=== PATIENT | female | born 1995 | race Caucasian/White ===

== ENCOUNTER 2017-01-21 17:57 | Emergency (ER) | payer OTHER ==
[2017-01-21 18:16] VITALS: BP 125/62; PULSE 103; TEMP 98; BMI 27.4
[2017-01-21 18:39] LABS: BASOPHIL 0.6 % (0-2.0); EOSINOPHIL 0.4 % (0-4.5); MCH 28.1 pg (25.7-33.7); MCHC 33.3 g/dl (32.0-36.0); MEAN CELL VOLUME 84.5 fl (80-96); MEAN PLT VOLUME 7.4 fl (7.5-11.1); PLATELET COUNT 180 K/MM3 (134-434); RDW 14.5 % (11.6-15.6)
[2017-01-21 18:40] LABS: URINE APPEARANCE CLEAR; URINE BILIRUBIN NEGATIVE (NEGATIVE); URINE BLOOD NEGATIVE (NEGATIVE); URINE COLOR YELLOW; URINE GLUCOSE (UA) NEGATIVE (NEGATIVE); URINE KETONE TRACE (NEGATIVE); URINE NITRITE NEGATIVE (NEGATIVE); URINE PROTEIN NEGATIVE (NEGATIVE); URINE UROBILINOGEN NEGATIVE E.U./dl (0.2-1.0)
[2017-01-21 18:42] LABS: URINE LEUK ESTERASE 2+ (NEGATIVE)
[2017-01-21 18:43] LABS: URINE HYALINE CAST 2 /lpf; URINE MUCUS MANY; URINE RBC 1 /hpf (0-3); URINE WBC 12 /hpf (3-5)
[2017-01-21] MEDS ORDERED: SODIUM CHLORIDE 1,000 ML IV STA (18:55)
[2017-01-21 19:04] LABS: ALBUMIN 3.9 g/dl (3.4-5.0); ALK PHOS 70 U/L (45-117); ANION GAP 9 (8-16); BILIRUBIN,TOTAL 0.8 mg/dL (0.2-1.0); CALCIUM 8.7 mg/dL (8.5-10.1); CO2 24 mmol/L (21-32); CREATININE 0.9 mg/dL (0.55-1.02); GLUCOSE,RANDOM 100 mg/dL (74-106); SGOT/AST 17 U/L (15-37); SGPT/ALT 18 U/L (12-78); TOT PROT 7.7 g/dl (6.4-8.2)
[2017-01-21] MEDS ORDERED: KETOROLAC TROMETHAMINE 30 MG/1 ML VIAL IVPUSH ONE (19:05)
--- NOTE | 2017-01-21 19:16 | PDOC ---
History of Present Illness - General History Source: Patient Exam Limitations: No Limitations <Rob Garcia - Last Filed: 01/21/17 20:14> - General History Source: Patient Exam Limitations: No Limitations - History of Present Illness Initial Comments: 01/21/17 20:27 The patient is a 22 year old female, with no significant past medical history, who presents to the emergency department with URI symptoms for the past 2 days. The patient reports that she was in her usual state of health 2 days ago. Yesterday, she woke up and reports feeling generally weak as if she was coming down with a cold. She reports one episode of nonbloody nonbilious vomiting this morning. The patient reports that she was at work earlier today when she felt weak, dizzy and lightheaded, she reports feeling like she was going to pass out but never did, denies any syncope. She presents to the ED for further evaluation. The patient additionally reports a UTI, for which she is currently on antibiotics for. The patient denies fever, chills, chest pain or shortness of breath. Allergies: None reported. Past Surgical History: None reported. Social History: Current smoker. Reports social alcohol use. <Trista Durand - Last Filed: 01/21/17 20:30> - General Chief Complaint: Lightheaded Stated Complaint: DIZZINESS Time Seen by Provider: 01/21/17 18:43 Past History - Psycho/Social/Smoking Cessation Hx Suicidal Ideation: No Smoking History: Current some day smoker Have you smoked in the past 12 months: Yes Information on smoking cessation initiated: No <Rob Garcia - Last Filed: 01/21/17 20:14> <Trista Durand - Last Filed: 01/21/17 20:30> - Past Medical History Allergies/Adverse Reactions: Allergies Allergy/AdvReac Type Severity Reaction Status Date / Time No Known Allergies Allergy Verified 01/21/17 18:13 Home Medications: Ambulatory Orders Cephalexin [Keflex] 500 mg PO BID #13 capsule 01/21/17 Review of Systems - Review of Systems Able to Perform ROS?: Yes Comments:: 01/21/17 20:19 GENERAL/CONSTITUTIONAL: +Weakness. No fever or chills. HEAD, EYES, EARS, NOSE AND THROAT: No change in vision. No ear pain or discharge. No sore throat. CARDIOVASCULAR: +Lightheadedness. No chest pain or shortness of breath. RESPIRATORY: +URI symptoms. No wheezing or hemoptysis. GASTROINTESTINAL: +Nausea, vomiting. No diarrhea or constipation. GENITOURINARY: No dysuria, frequency, or change in urination. MUSCULOSKELETAL: No joint or muscle swelling or pain. No neck or back pain. SKIN: No rash. NEUROLOGIC: +Dizziness. No headache, vertigo, loss of consciousness, or change in strength/sensation. ENDOCRINE: No increased thirst. No abnormal weight change. HEMATOLOGIC/LYMPHATIC: No anemia, easy bleeding, or history of blood clots. ALLERGIC/IMMUNOLOGIC: No hives or skin allergy. <Trista Durand - Last Filed: 01/21/17 20:30> *Physical Exam - Vital Signs Last Vital Signs Temp Pulse Resp BP Pulse Ox 98 F 103 H 19 125/62 99 01/21/17 18:13 01/21/17 18:13 01/21/17 18:13 01/21/17 18:13 01/21/17 18:13 <Rob Garcia - Last Filed: 01/21/17 20:14> - Vital Signs Last Vital Signs Temp Pulse Resp BP Pulse Ox 98 F 103 H 19 125/62 99 01/21/17 18:13 01/21/17 18:13 01/21/17 18:13 01/21/17 18:13 01/21/17 18:13 - Physical Exam Comments: 01/21/17 19:19 GENERAL: Awake, alert, and fully oriented, in no acute distress. HEAD: No signs of trauma. EYES: PERRLA, EOMI, sclera anicteric, conjunctiva clear. ENT: Auricles normal inspection, hearing grossly normal, nares patent, oropharynx clear without exudates. Moist mucosa. NECK: Normal ROM, supple, no lymphadenopathy, JVD, or masses. LUNGS: Breath sounds equal, clear to auscultation bilaterally. No wheezes, and no crackles. HEART: Regular rate and rhythm, normal S1 and S2, no murmurs, rubs or gallops. ABDOMEN: Soft, nontender, normoactive bowel sounds. No guarding, no rebound. No masses. EXTREMITIES: Normal range of motion, no edema. No clubbing or cyanosis. No cords , erythema, or tenderness. NEUROLOGICAL: Cranial nerves II through XII intact. Normal speech, normal gait. SKIN: Warm, dry, normal turgor, no rashes or lesions noted. <Trista Durand - Last Filed: 01/21/17 20:30> Heart Score/ECG Review #1 ECG reviewed & interpreted by me at: 20:05 01/21/17 20:11 NSR 85, no std/trae, T wave flat III, no brugada, no HOCM, no WPW, normal axis, normal intervals, QTC 430 msec <Rob Garcia - Last Filed: 01/21/17 20:14> ED Treatment Course - LABORATORY CBC & Chemistry Diagram: 01/21/17 18:30 01/21/17 18:30 - ADDITIONAL ORDERS Additional order review: Laboratory Results 01/21/17 01/21/17 18:30 18:30 Sodium 143 Potassium 3.6 Chloride 110 H Carbon Dioxide 24 Anion Gap 9 BUN 14 Creatinine 0.9 Creat Clearance w eGFR > 60 Random Glucose 100 Calcium 8.7 Total Bilirubin 0.8 AST 17 ALT 18 Alkaline Phosphatase 70 Total Protein 7.7 Albumin 3.9 Urine Color Yellow Urine Appearance Clear Urine pH 5.0 Ur Specific Cutler 1.038 H Urine Protein Negative Urine Glucose (UA) Negative Urine Ketones Trace H Urine Blood Negative Urine Nitrite Negative Urine Bilirubin Negative Urine Urobilinogen Negative Ur Leukocyte Esterase 2+ H Urine RBC 1 Urine WBC 12 Ur Epithelial Cells Few Hyaline Casts 2 Urine Mucus Many Urine HCG, Qual Negative 01/21/17 18:30 RBC 4.64 MCV 84.5 MCHC 33.3 RDW 14.5 MPV 7.4 L Neutrophils % 59.0 Lymphocytes % 28.3 Monocytes % 11.7 H Eosinophils % 0.4 Basophils % 0.6 <Rob Garcia - Last Filed: 01/21/17 20:14> - LABORATORY CBC & Chemistry Diagram: 01/21/17 18:30 01/21/17 18:30 - ADDITIONAL ORDERS Additional order review: Laboratory Results 01/21/17 01/21/17 18:30 18:30 Sodium 143 Potassium 3.6 Chloride 110 H Carbon Dioxide 24 Anion Gap 9 BUN 14 Creatinine 0.9 Creat Clearance w eGFR > 60 Random Glucose 100 Calcium 8.7 Total Bilirubin 0.8 AST 17 ALT 18 Alkaline Phosphatase 70 Total Protein 7.7 Albumin 3.9 Urine Color Yellow Urine Appearance Clear Urine pH 5.0 Ur Specific Cutler 1.038 H Urine Protein Negative Urine Glucose (UA) Negative Urine Ketones Trace H Urine Blood Negative Urine Nitrite Negative Urine Bilirubin Negative Urine Urobilinogen Negative Ur Leukocyte Esterase 2+ H Urine RBC 1 Urine WBC 12 Ur Epithelial Cells Few Hyaline Casts 2 Urine Mucus Many Urine HCG, Qual Negative 01/21/17 18:30 RBC 4.64 MCV 84.5 MCHC 33.3 RDW 14.5 MPV 7.4 L Neutrophils % 59.0 Lymphocytes % 28.3 Monocytes % 11.7 H Eosinophils % 0.4 Basophils % 0.6 <RocklandTrista Jauregui - Last Filed: 01/21/17 20:30> Medical Decision Making - Medical Decision Making 01/21/17 19:13 A portion of this note was documented by scribe services under my direction. I have reviewed the details of the note, within reason, and agree with the documentation with the following case summary and management plan written by me. Patient treated in the ED. Nursing notes are reviewed and incorporated into the medical decision-making. Vital signs reviewed. Peripheral IV access obtained by the nurse, laboratory studies are drawn and sent, reviewed and interpreted by myself. Vital Signs Temp Pulse Resp BP Pulse Ox 98 F 103 H 19 125/62 99 01/21/17 18:13 01/21/17 18:13 01/21/17 18:13 01/21/17 18:13 01/21/17 18:13 22-year-old female with no past medical history presents with cold-like symptoms. Patient reports 2 days of upper respiratory-like symptoms and general malaise. She is also having current currently being treated for urinary tract infection which she's taken outpatient antibiotic. She is currently on her second dose. She stated at work, she felt lightheaded and dizzy and she felt like fainting but did not think. Denies chest pain or short of breath. Came to the ED for further evaluation. I suspect the patient has vasovagal near syncope and lightheadedness with an upper respiratory infection likely viral plus urinary tract infection. We'll give IV fluids and Toradol. Draw labs and reassess. If negative workup, we'll discharge the PMD follow-up. 01/21/17 20:11 CBC, BMP 01/21/17 18:30 01/21/17 18:30 CMP Sodium 143 mmol/L (136-145) 01/21/17 18:30 Potassium 3.6 mmol/L (3.5-5.1) 01/21/17 18:30 Chloride 110 mmol/L (98-107) H 01/21/17 18:30 Carbon Dioxide 24 mmol/L (21-32) 01/21/17 18:30 Anion Gap 9 (8-16) 01/21/17 18:30 BUN 14 mg/dL (7-18) 01/21/17 18:30 Creatinine 0.9 mg/dL (0.55-1.02) 01/21/17 18:30 Creat Clearance w eGFR > 60 (>60) 01/21/17 18:30 Random Glucose 100 mg/dL (74-106) 01/21/17 18:30 Calcium 8.7 mg/dL (8.5-10.1) 01/21/17 18:30 Total Bilirubin 0.8 mg/dL (0.2-1.0) 01/21/17 18:30 AST 17 U/L (15-37) 01/21/17 18:30 ALT 18 U/L (12-78) 01/21/17 18:30 Alkaline Phosphatase 70 U/L (45-117) 01/21/17 18:30 Total Protein 7.7 g/dl (6.4-8.2) 01/21/17 18:30 Albumin 3.9 g/dl (3.4-5.0) 01/21/17 18:30 Urine Test Results Urine Color Yellow 01/21/17 18:30 Urine Appearance Clear 01/21/17 18:30 Urine pH 5.0 (5.0-8.0) 01/21/17 18:30 Ur Specific Cutler 1.038 (1.001-1.035) H 01/21/17 18:30 Urine Protein Negative (NEGATIVE) 01/21/17 18:30 Urine Glucose (UA) Negative (NEGATIVE) 01/21/17 18:30 Urine Ketones Trace (NEGATIVE) H 01/21/17 18:30 Urine Blood Negative (NEGATIVE) 01/21/17 18:30 Urine Nitrite Negative (NEGATIVE) 01/21/17 18:30 Urine Bilirubin Negative (NEGATIVE) 01/21/17 18:30 Ur Leukocyte Esterase 2+ (NEGATIVE) H 01/21/17 18:30 Urine RBC 1 /hpf (0-3) 01/21/17 18:30 Urine WBC 12 /hpf (3-5) 01/21/17 18:30 Ur Epithelial Cells Few /hpf (FEW) 01/21/17 18:30 Urine Mucus Many 01/21/17 18:30 Patient reports feeling better. After talking with the patient, it sounds like she received (two pills) for both her and her boyfriend (?azithromycin for chlamydia?). She does not have any more prescriptions for a UTI. Will write a prescription for 1 week worth of keflex. Follow up with PMD. Encouraged hydration. I discussed the physical exam findings, ancillary test results and final diagnoses with the patient. I answered all of the patient's questions. The patient was satisfied with the care received and felt comfortable with the discharge plan and treatment plan. The patient will call their primary care physician within 24 hours to arrange follow-up and will return to the Emergency Department with any new, persistant or worsening symptoms. <Rob Garcia - Last Filed: 01/21/17 20:14> *DC/Admit/Observation/Transfer - Discharge Dispostion Admit: No <Rob Garcia - Last Filed: 01/21/17 20:14> - Attestations Scribe Attestion: 01/21/17 19:19 Documentation prepared by Trista Durand, acting as chief medical physicist for Rob Garcia MD. <Trista Durand - Last Filed: 01/21/17 20:30> Diagnosis at time of Disposition: Dehydration, URI, acute UTI (urinary tract infection) Qualifiers: Urinary tract infection type: site unspecified Hematuria presence: without hematuria Qualified Code(s): N39.0 - Urinary tract infection, site not specified - Discharge Dispostion Disposition: HOME Condition at time of disposition: Improved - Prescriptions Prescriptions: Cephalexin [Keflex] 500 mg PO BID #13 capsule - Referrals Referrals: STAFF,NOT ON [Primary Care Provider] - - Patient Instructions Printed Discharge Instructions: DI for Urinary Tract Infection (UTI), DI for Viral Syndrome, DI for Dehydration -- Adult Additional Instructions: Please take the keflex every 12 hours for the next week for your urine infection. Drink plenty of fluids and rest. Follow up with your doctor. - Post Discharge Activity Work/School Note: Back to Work
[2017-01-21] MEDS ORDERED: KETOROLAC TROMETHAMINE 30 MG/1 ML VIAL ONE (19:23)
[2017-01-21] MEDS ORDERED: CEPHALEXIN MONOHYDRATE 500 MG CAPSULE (UD) PO ONE (20:14)
[2017-01-21] MEDS ORDERED: CEPHALEXIN MONOHYDRATE 250 MG CAPSULE (FP) ONE (20:25)
--- NOTE | 2017-01-22 16:38 | EKG ---
Test Reason : Blood Pressure : / mmHG Vent. Rate : 085 BPM Atrial Rate : 085 BPM P-R Int : 150 ms QRS Dur : 086 ms QT Int : 362 ms P-R-T Axes : 041 051 035 degrees QTc Int : 430 ms NORMAL SINUS RHYTHM NORMAL ECG NO PREVIOUS ECGS AVAILABLE Confirmed by MD ISHA, KIRK ([id number]) on 01/22/2017 4:37:48 PM Referred By: Confirmed By:KIRK VIEIRA MD
== END 2017-01-21 20:24 | disposition home or self-care (01) ==
LOC: JER 17:57
PROC: 3E0333Z Introduction of Anti-inflammatory into Peripheral Vein, Percutaneous Approach (ICD-10-PCS; principal; 2017-01-21)
DX: J06.9 Acute upper respiratory infection, unspecified (principal); N39.0 Urinary tract infection, site not specified; E87.6 Hypokalemia
CPT/HCPCS: 36415; 80053; 81003; 81015; 84703; 85025; 93005; 93010; 99282-25

== ENCOUNTER 2017-08-31 18:56 | Emergency (ER) | payer OTHER ==
[2017-08-31 19:01] VITALS: BP 122/70; PULSE 76; TEMP 98.6; BMI 26.3
[2017-08-31] MEDS ORDERED: AZITHROMYCIN 500 MG TABLET PO ONE (20:41)
[2017-08-31 20:42] LABS: URINE APPEARANCE CLOUDY; URINE BILIRUBIN NEGATIVE (NEGATIVE); URINE BLOOD 1+ (NEGATIVE); URINE COLOR YELLOW; URINE GLUCOSE (UA) NEGATIVE (NEGATIVE); URINE KETONE NEGATIVE (NEGATIVE); URINE NITRITE NEGATIVE (NEGATIVE); URINE PROTEIN NEGATIVE (NEGATIVE); URINE UROBILINOGEN NEGATIVE mg/dL (0.2-1.0)
[2017-08-31] MEDS ORDERED: FLUCONAZOLE 50 MG TABLET PO ONE (20:51)
--- NOTE | 2017-08-31 20:51 | PDOC ---
History of Present Illness - General Chief Complaint: Urinary Problem Stated Complaint: STD TEST Time Seen by Provider: 08/31/17 19:55 - History of Present Illness Initial Comments: 08/31/17 20:42 CHIEF COMPLAINT: std testing HISTORY OF PRESENT ILLNESS: 22 yo F with no significant PMH presents to [facility] for STD testing. Patient states she has had white discharge "for a week" but denies any dysuria, urinary frequency, or burning. PAtient reports "it feels kind of irritated and sometimes it's itchy." Patient reports being sexually active with one partner and states she recently had unprotected sex. PAST MEDICAL HISTORY: Denies past medical history FAMILY HISTORY: Denies SOCIAL HISTORY: Denies tobacco, alcohol, illicit drug use. SURGICAL HISTORY: Denies ALLERGIES: No known drug allergies REVIEW OF SYSTEMS General/Constitutional: Denies fever or chills. Denies weakness, weight change. HEENT: Denies change in vision. Denies ear pain or discharge. Denies sore throat. Cardiovascular: Denies chest pain or shortness of breath. Respiratory: Denies cough, wheezing, or hemoptysis. Gastrointestinal: Denies nausea, vomiting, diarrhea or constipation. Denies rectal bleeding. Genitourinary: "I've had white discharge for a week." Denies dysuria, frequency , or change in urination. Musculoskeletal: Denies joint or muscle swelling or pain. Denies neck or back pain. Skin and breasts: Denies rash or easy bruising. PHYSICAL EXAM General Appearance: Well-appearing, appropriately dressed. No apparent distress. HEENT: EOMI, PERRLA, normal ENT inspection, normal voice, TMs normal, pharynx normal. No conjunctival pallor. No photophobia, scleral icterus. Neck: Supple. Trachea midline. No tenderness, rigidity, carotid bruit, stridor , lymphadenopathy, or thyromegaly. Respiratory/Chest: Lungs CTAB. Cardiovascular: RRR. S1, S2. Gastrointestinal/Abdominal: Normal bowel sounds. Abdomen soft, non-distended. No tenderness or rebound tenderness. No organomegaly, pulsatile mass, guarding , hernia, hepatomegaly, splenomegaly. Pelvic Exam: Vaginal vault with thin white/green discharge with minimal clumping. Musculoskeletal/Extremities: Normal inspection. FROM of all extremities, normal capillary refill. No tenderness to extremities, pedal edema, swelling, erythema or deformity. Integumentary: Appropriate color, dry, warm. No cyanosis, erythema, jaundice or rash Neurologic: web sizer II-XII intact. Fully oriented, alert. Appropriate mood/affect. Motor strength 5/5. No appreciable EOM palsy, facial droop or sensory deficit. Past History - Past Medical History Allergies/Adverse Reactions: Allergies Allergy/AdvReac Type Severity Reaction Status Date / Time No Known Allergies Allergy Verified 01/21/17 18:13 Home Medications: Ambulatory Orders NK [No Known Home Medication] 08/31/17 Other medical history: denies - Suicide/Smoking/Psychosocial Hx Smoking History: Never smoked Have you smoked in the past 12 months: Yes Information on smoking cessation initiated: No Hx Alcohol Use: No Drug/Substance Use Hx: No Substance Use Type: None *Physical Exam - Vital Signs Last Vital Signs Temp Pulse Resp BP Pulse Ox 98.6 F 76 17 122/70 100 08/31/17 19:00 08/31/17 19:00 08/31/17 19:00 08/31/17 19:00 08/31/17 19:00 *DC/Admit/Observation/Transfer Diagnosis at time of Disposition: Potential exposure to STD, Yeast infection of the vagina - Discharge Dispostion Disposition: HOME Condition at time of disposition: Stable Admit: No - Patient Instructions Printed Discharge Instructions: DI for Vaginal Yeast Infection, How to Detect and Treat STDs, Facts About Sexually Transmitted Infections Additional Instructions: You were treated today for chlamydia and gonorrhea, as well as for a vaginal yeast infection. Your urine was negative for a urinary tract infection and negative for . Please call us in 2-3 days regarding your STD test results.
[2017-08-31] MEDS ORDERED: FLUCONAZOLE 100 MG TABLET (UD) ONE (20:52)
[2017-08-31 21:06] LABS: URINE LEUK ESTERASE 3+ (NEGATIVE)
[2017-08-31 21:24] LABS: URINE RBC 26 /hpf (0-3); URINE WBC 82 /hpf (3-5)
[2017-08-31 21:25] LABS: CALCIUM OXALATE CRYSTALS RARE /hpf (NONE SEEN)
[2017-08-31 21:26] LABS: URINE BACTERIA SMALL /hpf (NONE SEEN); URINE MUCUS RARE
== END 2017-08-31 21:22 | disposition home or self-care (01) ==
LOC: JERFT 18:56
DX: B37.3 Candidiasis of vulva and vagina (principal); Z20.2 Contact with and (suspected) exposure to infections with a predominantly sexual mode of transmission
CPT/HCPCS: 36415; 81003; 81015; 84703; 87086; 87491; 87591; 96372; 99281-25

== ENCOUNTER 2019-03-07 16:58 | Observation (INO) | payer OTHER ==
--- NOTE | 2019-03-07 17:10 | PDOC ---
Rapid Medical Evaluation Time Seen by Provider: 03/07/19 17:06 Medical Evaluation: Allergies Allergy/AdvReac Type Severity Reaction Status Date / Time No Known Allergies Allergy Verified 05/09/18 14:05 03/07/19 17:09 I have performed a brief in-person evaluation of this patient. The patient presents with a chief complaint of: night sweats and hemoptysis Pertinent physical exam findings: Lungs CTAB. Had CXR 03/06 with L upper lobe density I have ordered the following: labs, urine The patient will proceed to the ED for further evaluation. 03/07/19 17:10 Discharge Disposition - Diagnosis Hemoptysis - Referrals - Patient Instructions - Post Discharge Activity
[2019-03-07 17:12] VITALS: BMI 29.9
[2019-03-07 18:23] LABS: BASO % 0.3 % (0-2.0); EOS % 0.9 % (0-4.5); HEMATOCRIT 41.7 % (32.4-45.2); HEMOGLOBIN 13.8 GM/dL (10.7-15.3); LYMPH % 38.4 % (8-40); MCH 28.5 pg (25.7-33.7); MCHC 33.2 g/dl (32.0-36.0); MEAN CELL VOLUME 85.7 fl (80-96); MEAN PLT VOLUME 7.5 fl (7.5-11.1); MONO % 7.6 % (3.8-10.2); NEUT % 52.8 % (42.8-82.8); PLATELET COUNT 224 K/MM3 (134-434); RBC 4.86 M/mm3 (3.60-5.2); RDW 13.5 % (11.6-15.6); WHITE BLOOD COUNT 6.7 K/mm3 (4.0-10.0)
[2019-03-07 18:29] LABS: HCG,QUALITATIVE URINE Negative
--- NOTE | 2019-03-07 18:29 | PDOC ---
History of Present Illness - General Chief Complaint: Hemoptysis Stated Complaint: COUGHING BLOOD Time Seen by Provider: 03/07/19 17:06 - History of Present Illness Initial Comments: 03/07/19 19:39 14f presenting with 2 days of coughing up blood and some night chills. No weight loss or fever. Questionable CXR done yesterday with possible upper lobe density of the left lung. 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 . Denies fever, weight loss, recent travel or recent visit. Past History - Past Medical History Allergies/Adverse Reactions: Allergies Allergy/AdvReac Type Severity Reaction Status Date / Time No Known Allergies Allergy Verified 05/09/18 14:05 Home Medications: Ambulatory Orders NK [No Known Home Medication] 03/07/19 COPD: No - Immunization History Immunization Up to Date: Yes - Suicide/Smoking/Psychosocial Hx Smoking History: Never smoked Have you smoked in the past 12 months: Yes Hx Alcohol Use: No Drug/Substance Use Hx: No Substance Use Type: None Review of Systems - Review of Systems Able to Perform ROS?: Yes Is the patient limited Kosovan proficient: No *Physical Exam - Vital Signs Last Vital Signs Temp Pulse Resp BP Pulse Ox 98.4 F 77 20 126/78 98 03/07/19 17:05 03/07/19 17:05 03/07/19 17:05 03/07/19 17:05 03/07/19 17:05 ED Treatment Course - LABORATORY CBC & Chemistry Diagram: 03/07/19 17:55 03/07/19 19:20 - ADDITIONAL ORDERS Additional order review: Laboratory Results 03/07/19 17:55 Urine HCG, Qual Negative 03/07/19 17:55 RBC 4.86 MCV 85.7 MCHC 33.2 RDW 13.5 MPV 7.5 Neutrophils % 52.8 Lymphocytes % 38.4 Monocytes % 7.6 Eosinophils % 0.9 Basophils % 0.3 Medical Decision Making - Medical Decision Making 03/07/19 18:56 Questionable density left upper lobe. This could represent a lung lesion or some atelectasis. Follow up imaging is suggested. Pulmonary consultation along with CT may be of help. 03/07/19 21:08 CT: The lung is clear. No focal infiltrates, nodule, pneumothorax or pleural effusion are identified, bilaterally. Included lower neck appears unremarkable. The heart is within normal limits in size. No enlarged mediastinal or hilar lymph nodes are identified. Included portion of the upper abdomen appears unremarkable. Visualized osseous structures appear intact No TB on CT. Will need to investigate for mitral regurgitation Spoke to Dr. Grady, infectious diseases who recommended admitting the patient for further evaluation. Patient accepted., 03/07/19 21:14 *DC/Admit/Observation/Transfer Diagnosis at time of Disposition: Hemoptysis - Discharge Dispostion Decision to Admit order: Yes - Referrals Referrals: Sandra Peralta MD [Primary Care Provider] - - Patient Instructions - Post Discharge Activity
[2019-03-07 18:30] LABS: EPI CELLS 3.4 /HPF (0-5/HPF); PH,URINE 5.5 (5.0-8.0); URINE APPEARANCE CLOUDY; URINE BACTERIA 652.1 /hpf (NEGATIVE); URINE BILIRUBIN NEGATIVE (NEGATIVE); URINE CASTS 34 /hpf (0-8); URINE COLOR YELLOW; URINE GLUCOSE (UA) NEGATIVE (NEGATIVE); URINE KETONE TRACE (NEGATIVE); URINE LEUK ESTERASE 1+ (NEGATIVE); URINE NITRITE NEGATIVE (NEGATIVE); URINE PROTEIN NEGATIVE (NEGATIVE); URINE WBC 30 /hpf (0-5)
[2019-03-07 18:53] LABS: INR 1.1 (0.83-1.09)
[2019-03-07 19:26] LABS: URINE RBC 3.8 /hpf (0-4)
[2019-03-07 20:18] LABS: ALBUMIN 4.1 g/dl (3.4-5.0); ALK PHOS 84 U/L (45-117); ANION GAP 7 MMOL/L (8-16); BLOOD UREA NITROGEN 20 mg/dL (7-18); CALCIUM 8.9 mg/dL (8.5-10.1); CHLORIDE 106 mmol/L (98-107); CO2 26 mmol/L (21-32); CREATININE 0.8 mg/dL (0.55-1.3); GLUCOSE,RANDOM 89 mg/dL (74-106); POTASSIUM 4.9 mmol/L (3.5-5.1); SGOT/AST 37 U/L (15-37); SGPT/ALT 27 U/L (13-61); SODIUM 139 mmol/L (136-145); TOT PROT 8.4 g/dl (6.4-8.2)
--- NOTE | 2019-03-07 21:24 | PDOC ---
Attending Attestation - Resident Resident Name: Mukesh Jones - ED Attending Attestation I have performed the following: I have examined & evaluated the patient, The case was reviewed & discussed with the resident, I agree w/resident's findings & plan, Exceptions are as noted - HPI HPI: 03/07/19 21:16 The patient is a 24 year old domiciled female with no significant PMH who presents to the emergency department with 2 day history of hemoptysis. The patient describes the hemoptysis as less than a teaspoon, but notes the contents are mostly bright red blood as opposed to "spit." Patient states she is having hemoptysis multiple times a day that is worse in the morning. Patient reports she has been coughing up the bood, and not vomiting it. She also admits to night sweats, but denies any recent weight loss, fevers, chills. Patient saw her PCP who was concerned about tuberculosis after performing an x-ray, which was found to be abnormal. Patient was told she may require a CT prompting her to come to the ER for further evaluation. 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 Denies any recent travel. Denies any history of incarceration. Patient has had 2 PPDs within the past year for work, and states that they were both negative. The patient denies fever, chills, chest pain, or shortness of breath. Allergies: None reported. Past Surgical History: None reported. Social History: Current smoker. Reports social alcohol use. - Physicial Exam PE: 03/07/19 21:17 GENERAL: Awake, alert, and fully oriented, in no acute distress HEAD: No signs of trauma EYES: PERRLA, EOMI, sclera anicteric, conjunctiva clear ENT: Auricles normal inspection, hearing grossly normal, nares patent, oropharynx clear without exudates. Moist mucosa NECK: Normal ROM, supple, no lymphadenopathy, JVD, or masses LUNGS: Breath sounds equal, clear to auscultation bilaterally. No wheezes, and no crackles HEART: Regular rate and rhythm, normal S1 and S2, no murmurs, rubs or gallops ABDOMEN: Soft, nontender, normoactive bowel sounds. No guarding, no rebound. No masses EXTREMITIES: Normal range of motion, no edema. No clubbing or cyanosis. No cords, erythema, or tenderness NEUROLOGICAL: Normal speech, cranial nerves intact, equal strength and sensation b/l SKIN: Warm, Dry, normal turgor, no rashes or lesions noted. - Medical Decision Making 03/07/19 21:24 24yo F presents to the ED with BRB hemoptysis. Picture of hemoptysis seen on pt' s phone, BRB, less than a teaspoon. Has no TB risk factors but unclear etiology of hemoptysis. CT chest neg. Case discussed with Dr. Grady, low risk for TB but should be admitted for further w/u for malignancy, bronchiectasis, etc. Plan to admit pt for further w.u Heart Score/ECG Review #1 03/07/19 21:27 Twelve-lead EKG was performed and reviewed by me. Normal sinus rhythm, rate 85. Normal axis and intervals. No ST elevations or T-wave inversions.
--- NOTE | 2019-03-07 22:09 | PN ---
Teaching Attending Note Name of Resident: Primo Warner ATTENDING PHYSICIAN STATEMENT I saw and evaluated the patient. I reviewed the resident's note and discussed the case with the resident. I agree with the resident's findings and plan as documented. SUBJECTIVE: Patient is a 24 year old woman with PMH of Tobacco use and evaluated once in the ER for hematuria/flank pain (05/09/2018) now presents to the ER with 2 day history of coughing up blood. She describes the hemoptysis as less than a teaspoon, but notes the contents are mostly bright red blood as opposed to "spit." Patient states she is having hemoptysis multiple times a day and that it is worse in the morning. She also admits to night sweats, but denies any recent weight loss, fevers, chills. Patient saw her PCP who got a CXR which was found to be abnormal. 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 Denies any recent travel or history of incarceration. Patient has had 2 PPDs within the past year for work, and states that they were both negative. The patient denies fever, chills, chest pain, or shortness of breath. OBJECTIVE: Alert Vital Signs Period Temp Pulse Resp BP Sys/Caballero Pulse Ox Last 24 Hr 98.4 F 77 20 126/78 98 HEENT: No Jaundice, eye redness or discharge, PERRLA, EOMI. Normocephalic, atraumatic. External ears are normal and hearing is grossly intact. No nasal discharge. Neck: Supple, nontender. No palpable adenopathy or thyromegaly. No JVD Chest: Good effort. Clear to auscultation and percussion. Heart: Regular. No S3, rub or murmur Abdomen: Not distended, soft, nontender and no HSM. No rebound or guarding. Normal bowel sounds. Ext: Peripheral pulses intact. No leg edema. Skin: Warm and dry. No petechiae, rash or ecchymosis. Neuro: Alert. Oriented x3. CN 2-12 grossly intact. Sensation grossly intact in all four extremities and DTR are symmetric. Psych: Appropriate mood and affect. Good insight. Home Medications Medication Instructions Recorded NK [No Known Home Medication] 03/07/19 Abnormal Lab Results 03/07/19 03/07/19 03/07/19 17:55 17:55 19:20 INR 1.10 H Anion Gap 7 L BUN 20 H Total Protein 8.4 H Urine Ketones Trace H Ur Leukocyte Esterase 1+ H ASSESSMENT AND PLAN: 1. Hemoptysis - Etiology is unclear. Chest CT didnot show any acute abnormality. ID consulted and recommended admission for further workup including sputum for AFB, quantiferon test and possibly bronchoscopy. EKG is NSR with no acute ST-T wave changes. Patient has features of UTI and will be treated with IV Rocephin 1 gm q 24 hours. 2. Tobacco Use Counseled on risks associated with tobacco use. We will provide patient all the necessary assistance to facilitate smoking cessation and prescribe Nicotine patch. 3. Obesity Counseled on the risks associated with obesity. Will provide patient all the necessary assistance, counseling and positive reinforcement to facilitate weight loss. 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 4. DVT prophylaxis - Lovenox 40 mg SQ q 24 hours. 5. Advance directives - Full code
[2019-03-07] MEDS ORDERED: CEFTRIAXONE 1 GM in DEXTROSE 5%-WATER - 50 ML IVPB ONE (22:40)
--- NOTE | 2019-03-07 22:48 | HP ---
CHIEF COMPLAINT: Hemoptysis PCP: Kathryn HISTORY OF PRESENT ILLNESS: Pt is a 24 y/o F w/ no PMHx p/w recurrent hemoptysis x 3 days. Seems to occur most when she is lying down. Pt took pictures on phone and moderate volume michelet blood expectoration is unequivocal. Otherwise no change from USOH. In particular denies SOB, other cough, fevers, chills, sick contact, recent travel. 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 Saw PCP yesterday who ordered CXR showing possible MAGDA density, however chest CT in ED is entirely negative. On presentation vitals stable, afebrile, CMP and CBC wnl. UA is incidentally positive, Pt denies dysuria. ER course was notable for: (1) negative chest CT (2) CBC, CMP, VS wnl (3) +UA Recent Travel: none PAST MEDICAL HISTORY: none PAST SURGICAL HISTORY: none Social History: Smoking: occasional hookah Alcohol: socially Drugs: none Family History: Allergies No Known Allergies Allergy (Verified 05/09/18 14:05) HOME MEDICATIONS: Home Medications Medication Instructions Recorded NK [No Known Home Medication] 03/07/19 REVIEW OF SYSTEMS As per HPI PHYSICAL EXAMINATION Vital Signs - 24 hr 03/07/19 17:05 Temperature 98.4 F Pulse Rate 77 Respiratory 20 Rate Blood Pressure 126/78 O2 Sat by Pulse 98 Oximetry (%) GENERAL: A&Ox3, NAD HEENT: NC/AT, PERRLA, EOMI, MMM NECK: Trachea midline, full range of motion, supple. LUNGS: CTA b/l HEART: RRR no m/r/g ABDOMEN: +bs, soft, NT, ND EXTREMITIES: 2+ pulses, warm, well-perfused, no edema, no calf tenderness. NEUROLOGICAL: block breaker, motor, sensory systems w/o focal deficit PSYCH: Normal mood, normal affect. SKIN: Warm, dry, normal turgor, no rashes or lesions noted Laboratory Results - last 24 hr 03/07/19 03/07/19 03/07/19 17:55 17:55 17:55 WBC 6.7 RBC 4.86 Hgb 13.8 Hct 41.7 MCV 85.7 MCH 28.5 MCHC 33.2 RDW 13.5 Plt Count 224 MPV 7.5 Absolute Neuts (auto) 3.5 Neutrophils % 52.8 Lymphocytes % 38.4 Monocytes % 7.6 Eosinophils % 0.9 Basophils % 0.3 Nucleated RBC % 0 PT with INR 13.00 INR 1.10 H Sodium Potassium Chloride Carbon Dioxide Anion Gap BUN Creatinine Creat Clearance w eGFR Random Glucose Calcium Total Bilirubin AST ALT Alkaline Phosphatase Total Protein Albumin Urine Color Yellow Urine Appearance Cloudy Urine pH 5.5 Ur Specific [place] 1.026 Urine Protein Negative Urine Glucose (UA) Negative Urine Ketones Trace H Urine Blood Negative Urine Nitrite Negative Urine Bilirubin Negative Urine Urobilinogen 1.0 Ur Leukocyte Esterase 1+ H Urine WBC (Auto) 30 Urine RBC (Auto) 3.8 Urine Casts (Auto) 34 U Epithel Cells (Auto) 3.4 Urine Bacteria (Auto) 652.1 Urine HCG, Qual Negative 03/07/19 03/07/19 17:55 19:20 WBC RBC Hgb Hct MCV MCH MCHC RDW Plt Count MPV Absolute Neuts (auto) Neutrophils % Lymphocytes % Monocytes % Eosinophils % Basophils % Nucleated RBC % PT with INR INR Sodium Cancelled 139 Potassium Cancelled 4.9 Chloride Cancelled 106 Carbon Dioxide Cancelled 26 Anion Gap Cancelled 7 L BUN Cancelled 20 H Creatinine Cancelled 0.8 Creat Clearance w eGFR Cancelled 87.40 Random Glucose Cancelled 89 Calcium Cancelled 8.9 Total Bilirubin Cancelled 1.0 AST Cancelled 37 ALT Cancelled 27 Alkaline Phosphatase Cancelled 84 Total Protein Cancelled 8.4 H Albumin Cancelled 4.1 Urine Color Urine Appearance Urine pH Ur Specific [place] Urine Protein Urine Glucose (UA) Urine Ketones Urine Blood Urine Nitrite Urine Bilirubin Urine Urobilinogen Ur Leukocyte Esterase Urine WBC (Auto) Urine RBC (Auto) Urine Casts (Auto) U Epithel Cells (Auto) Urine Bacteria (Auto) Urine HCG, Qual ASSESSMENT/PLAN: 24 y/o F w/ no PMHx p/w 3 days intermittent hemoptysis, otherwise in USOH -chest CT negative -empiric ceftriaxone for UTI -ID consulted -pulmonary consulted -NPO after midnight for possible bronchoscopy -monitor CBC, BMP -SCDs for DVT PPx Visit type - Emergency Visit Emergency Visit: Yes Care time: The patient presented to the Emergency Department on the above date and was hospitalized for further evaluation of their emergent condition. - New Patient This patient is new to me today: Yes Date on this admission: 03/07/19 - Critical Care Critical Care patient: No
[2019-03-07] MEDS ORDERED: CEFTRIAXONE 1 GM/50 ML BAG ONE (22:51)
[2019-03-08 05:29] LABS: BASO % 0.5 % (0-2.0); EOS % 1.5 % (0-4.5); HEMATOCRIT 39.4 % (32.4-45.2); HEMOGLOBIN 13.5 GM/dL (10.7-15.3); LYMPH % 47.9 % (8-40); MCH 28.8 pg (25.7-33.7); MCHC 34.2 g/dl (32.0-36.0); MEAN CELL VOLUME 84.1 fl (80-96); MEAN PLT VOLUME 7.2 fl (7.5-11.1); NEUT % 42.1 % (42.8-82.8); PLATELET COUNT 224 K/MM3 (134-434); RBC 4.69 M/mm3 (3.60-5.2); RDW 13.7 % (11.6-15.6); WHITE BLOOD COUNT 6.3 K/mm3 (4.0-10.0)
[2019-03-08 05:39] VITALS: TEMP 98.1
[2019-03-08 05:56] LABS: ANION GAP 5 MMOL/L (8-16); BLOOD UREA NITROGEN 19 mg/dL (7-18); CHLORIDE 104 mmol/L (98-107); CO2 27 mmol/L (21-32); CREATININE 0.7 mg/dL (0.55-1.3); GLUCOSE,RANDOM 94 mg/dL (74-106); MAGNESIUM 2.1 mg/dL (1.8-2.4); PHOSPHOROUS 4.6 mg/dL (2.5-4.9); POTASSIUM 3.9 mmol/L (3.5-5.1); SODIUM 136 mmol/L (136-145)
--- NOTE | 2019-03-08 09:17 | PN ---
Physical Exam: SUBJECTIVE: Patient seen and examined OBJECTIVE: Vital Signs Period Temp Pulse Resp BP Sys/Caballero Pulse Ox Last 24 Hr 98.1 F-98.4 F 74-82 18-20 110-126/67-78 92-100 GENERAL: The patient is awake, alert, and fully oriented, in no acute distress. HEAD: Normal with no signs of trauma. EYES: PERRL, extraocular movements intact, sclera anicteric, conjunctiva clear. No ptosis. ENT: Ears normal, nares patent, oropharynx clear without exudates, moist mucous membranes. NECK: Trachea midline, full range of motion, supple. LUNGS: Breath sounds equal, clear to auscultation bilaterally, no wheezes, no crackles, no accessory muscle use. HEART: Regular rate and rhythm, S1, S2 without murmur, rub or gallop. ABDOMEN: Soft, nontender, nondistended, normoactive bowel sounds, no guarding, no rebound, no hepatosplenomegaly, no masses. EXTREMITIES: 2+ pulses, warm, well-perfused, no edema. NEUROLOGICAL: Cranial nerves II through XII grossly intact. Normal speech, gait not observed. PSYCH: Normal mood, normal affect. SKIN: Warm, dry, normal turgor, no rashes or lesions noted Laboratory Results - last 24 hr 03/07/19 03/07/19 03/07/19 17:55 17:55 17:55 WBC 6.7 RBC 4.86 Hgb 13.8 Hct 41.7 MCV 85.7 MCH 28.5 MCHC 33.2 RDW 13.5 Plt Count 224 MPV 7.5 Absolute Neuts (auto) 3.5 Neutrophils % 52.8 Lymphocytes % 38.4 Monocytes % 7.6 Eosinophils % 0.9 Basophils % 0.3 Nucleated RBC % 0 PT with INR 13.00 INR 1.10 H Sodium Potassium Chloride Carbon Dioxide Anion Gap BUN Creatinine Creat Clearance w eGFR Random Glucose Calcium Phosphorus Magnesium Total Bilirubin AST ALT Alkaline Phosphatase Total Protein Albumin Urine Color Yellow Urine Appearance Cloudy Urine pH 5.5 Ur Specific [place] 1.026 Urine Protein Negative Urine Glucose (UA) Negative Urine Ketones Trace H Urine Blood Negative Urine Nitrite Negative Urine Bilirubin Negative Urine Urobilinogen 1.0 Ur Leukocyte Esterase 1+ H Urine WBC (Auto) 30 Urine RBC (Auto) 3.8 Urine Casts (Auto) 34 U Epithel Cells (Auto) 3.4 Urine Bacteria (Auto) 652.1 Urine HCG, Qual Negative 03/07/19 03/07/19 03/08/19 17:55 19:20 05:15 WBC 6.3 RBC 4.69 Hgb 13.5 Hct 39.4 MCV 84.1 MCH 28.8 MCHC 34.2 RDW 13.7 Plt Count 224 MPV 7.2 L Absolute Neuts (auto) 2.6 Neutrophils % 42.1 L D Lymphocytes % 47.9 H D Monocytes % 8.0 Eosinophils % 1.5 Basophils % 0.5 Nucleated RBC % 0 PT with INR INR Sodium Cancelled 139 Potassium Cancelled 4.9 Chloride Cancelled 106 Carbon Dioxide Cancelled 26 Anion Gap Cancelled 7 L BUN Cancelled 20 H Creatinine Cancelled 0.8 Creat Clearance w eGFR Cancelled 87.40 Random Glucose Cancelled 89 Calcium Cancelled 8.9 Phosphorus Magnesium Total Bilirubin Cancelled 1.0 AST Cancelled 37 ALT Cancelled 27 Alkaline Phosphatase Cancelled 84 Total Protein Cancelled 8.4 H Albumin Cancelled 4.1 Urine Color Urine Appearance Urine pH Ur Specific [place] Urine Protein Urine Glucose (UA) Urine Ketones Urine Blood Urine Nitrite Urine Bilirubin Urine Urobilinogen Ur Leukocyte Esterase Urine WBC (Auto) Urine RBC (Auto) Urine Casts (Auto) U Epithel Cells (Auto) Urine Bacteria (Auto) Urine HCG, Qual 03/08/19 05:15 WBC RBC Hgb Hct MCV MCH MCHC RDW Plt Count MPV Absolute Neuts (auto) Neutrophils % Lymphocytes % Monocytes % Eosinophils % Basophils % Nucleated RBC % PT with INR INR Sodium 136 Potassium 3.9 Chloride 104 Carbon Dioxide 27 Anion Gap 5 L BUN 19 H Creatinine 0.7 Creat Clearance w eGFR 101.96 Random Glucose 94 Calcium 9.0 Phosphorus 4.6 Magnesium 2.1 Total Bilirubin AST ALT Alkaline Phosphatase Total Protein Albumin Urine Color Urine Appearance Urine pH Ur Specific [place] Urine Protein Urine Glucose (UA) Urine Ketones Urine Blood Urine Nitrite Urine Bilirubin Urine Urobilinogen Ur Leukocyte Esterase Urine WBC (Auto) Urine RBC (Auto) Urine Casts (Auto) U Epithel Cells (Auto) Urine Bacteria (Auto) Urine HCG, Qual Active Medications Generic Name Dose Route Start Last Admin Trade Name Freq PRN Reason Stop Dose Admin Nicotine 7 mg 03/08/19 10:00 Nicoderm Patch - TD DAILY AVERY ASSESSMENT/PLAN:
[2019-03-08] MEDS ORDERED: NICOTINE 7 MG/24 HOURS TOPICAL PATCH TD SCH (10:00)
--- NOTE | 2019-03-08 11:05 | EKG ---
Test Reason : Blood Pressure : / mmHG Vent. Rate : 085 BPM Atrial Rate : 085 BPM P-R Int : 154 ms QRS Dur : 084 ms QT Int : 374 ms P-R-T Axes : 033 036 034 degrees QTc Int : 445 ms NORMAL SINUS RHYTHM NORMAL ECG WHEN COMPARED WITH ECG OF 11-FEB-2018 11:38, NO SIGNIFICANT CHANGE WAS FOUND Confirmed by PARAMJIT CURTIS MD ([id number]) on 03/08/2019 11:04:59 AM Referred By: Confirmed By:PARAMJIT CURTIS MD
--- NOTE | 2019-03-08 14:10 | DS ---
Physical Exam: SUBJECTIVE: Patient seen and examined at bedside this morning. Patient endorses no further episodes of hemoptysis since hospital admission. Denies prior occurrence. She denies subjective fevers, chills, shortness of breath, chest pain, palpitations, abdominal pain, nausea, vomiting. OBJECTIVE: Vital Signs Period Temp Pulse Resp BP Sys/Caballero Pulse Ox Last 24 Hr 98.1 F-98.4 F 74-82 18-20 110-126/67-78 92-100 PHYSICAL EXAM GENERAL: The patient is awake, alert, and fully oriented, in no acute distress. HEAD: Normocephalic, atraumatic. EYES: PERRL, extraocular movements intact, sclera anicteric, conjunctiva clear. ENT: Oropharynx clear, slight erythema posterior oropharynx, without exudates. Moist mucous membranes. NECK: Trachea midline, full range of motion. Supple without lymphadenopathy. LUNGS: Breath sounds equal, clear to auscultation bilaterally, no wheezes, no crackles. No accessory muscle use. HEART: Regular rate and rhythm, S1, S2 without murmur, rub or gallop. ABDOMEN: Soft, nondistended, nontender to light and deep palpation x4 quadrants , no rebound tenderness, no guarding. Normoactive bowel sounds x4 quadrants. no hepatosplenomegaly, no masses. EXTREMITIES: 2+ radial, dorsalis pedis pulses bilaterally. Warm, well-perfused. No lower extremity edema bilaterally. NEUROLOGICAL: Cranial nerves II through XII grossly intact. Normal speech. No gross focal deficits. PSYCH: Normal mood, normal affect upon my encounter. SKIN: Warm, dry. LABS Laboratory Results - last 24 hr 03/07/19 03/07/19 03/07/19 17:55 17:55 17:55 WBC 6.7 RBC 4.86 Hgb 13.8 Hct 41.7 MCV 85.7 MCH 28.5 MCHC 33.2 RDW 13.5 Plt Count 224 MPV 7.5 Absolute Neuts (auto) 3.5 Neutrophils % 52.8 Lymphocytes % 38.4 Monocytes % 7.6 Eosinophils % 0.9 Basophils % 0.3 Nucleated RBC % 0 PT with INR 13.00 INR 1.10 H Sodium Potassium Chloride Carbon Dioxide Anion Gap BUN Creatinine Creat Clearance w eGFR Random Glucose Calcium Phosphorus Magnesium Total Bilirubin AST ALT Alkaline Phosphatase Total Protein Albumin Urine Color Yellow Urine Appearance Cloudy Urine pH 5.5 Ur Specific [place] 1.026 Urine Protein Negative Urine Glucose (UA) Negative Urine Ketones Trace H Urine Blood Negative Urine Nitrite Negative Urine Bilirubin Negative Urine Urobilinogen 1.0 Ur Leukocyte Esterase 1+ H Urine WBC (Auto) 30 Urine RBC (Auto) 3.8 Urine Casts (Auto) 34 U Epithel Cells (Auto) 3.4 Urine Bacteria (Auto) 652.1 Urine HCG, Qual Negative Influenza A (Rapid) Influenza B (Rapid) Group A Strep Rapid 03/07/19 03/07/19 03/08/19 17:55 19:20 05:15 WBC 6.3 RBC 4.69 Hgb 13.5 Hct 39.4 MCV 84.1 MCH 28.8 MCHC 34.2 RDW 13.7 Plt Count 224 MPV 7.2 L Absolute Neuts (auto) 2.6 Neutrophils % 42.1 L D Lymphocytes % 47.9 H D Monocytes % 8.0 Eosinophils % 1.5 Basophils % 0.5 Nucleated RBC % 0 PT with INR INR Sodium Cancelled 139 Potassium Cancelled 4.9 Chloride Cancelled 106 Carbon Dioxide Cancelled 26 Anion Gap Cancelled 7 L BUN Cancelled 20 H Creatinine Cancelled 0.8 Creat Clearance w eGFR Cancelled 87.40 Random Glucose Cancelled 89 Calcium Cancelled 8.9 Phosphorus Magnesium Total Bilirubin Cancelled 1.0 AST Cancelled 37 ALT Cancelled 27 Alkaline Phosphatase Cancelled 84 Total Protein Cancelled 8.4 H Albumin Cancelled 4.1 Urine Color Urine Appearance Urine pH Ur Specific [place] Urine Protein Urine Glucose (UA) Urine Ketones Urine Blood Urine Nitrite Urine Bilirubin Urine Urobilinogen Ur Leukocyte Esterase Urine WBC (Auto) Urine RBC (Auto) Urine Casts (Auto) U Epithel Cells (Auto) Urine Bacteria (Auto) Urine HCG, Qual Influenza A (Rapid) Influenza B (Rapid) Group A Strep Rapid 03/08/19 03/08/19 03/08/19 05:15 11:00 11:00 WBC RBC Hgb Hct MCV MCH MCHC RDW Plt Count MPV Absolute Neuts (auto) Neutrophils % Lymphocytes % Monocytes % Eosinophils % Basophils % Nucleated RBC % PT with INR INR Sodium 136 Potassium 3.9 Chloride 104 Carbon Dioxide 27 Anion Gap 5 L BUN 19 H Creatinine 0.7 Creat Clearance w eGFR 101.96 Random Glucose 94 Calcium 9.0 Phosphorus 4.6 Magnesium 2.1 Total Bilirubin AST ALT Alkaline Phosphatase Total Protein Albumin Urine Color Urine Appearance Urine pH Ur Specific [place] Urine Protein Urine Glucose (UA) Urine Ketones Urine Blood Urine Nitrite Urine Bilirubin Urine Urobilinogen Ur Leukocyte Esterase Urine WBC (Auto) Urine RBC (Auto) Urine Casts (Auto) U Epithel Cells (Auto) Urine Bacteria (Auto) Urine HCG, Qual Influenza A (Rapid) Negative Influenza B (Rapid) Negative Group A Strep Rapid Negative HOSPITAL COURSE: Date of Admission:03/07/19 Date of Discharge: 03/08/19 Patient is a 24 year old female with no significant medical history presents with complaint of hemptysis ongoing for past three days. She had chest radiograph done at request of primary care physician which showed left upper lung lobe lesion. CT chest showed no acute pathology. Influenza A/B, and Group A strep swab negative. Patient was placed NPO, pending pulmonology evaluation for possible bronchoscopy. TB quantiferon test was drawn, however patient left prior to results. Patient eloped against medical advice from the ED prior to pulmonology evaluation or explanation of the risks of leaving the hospital. Minutes to complete discharge: 35 Discharge Summary Reason For Visit: HEMOPTYSIS Current Active Problems Hemoptysis (Acute) Condition: Guarded - Instructions Diet, Activity, Other Instructions: Patient was seen in the hospital due to coughing up blood. Patient left ED prior to evaluation by pulmonology or infectious disease physicians. Referrals: Evelio Lancaster MD [Staff Physician] - Disposition: AGAINST MEDICAL ADVICE - Home Medications Comprehensive Discharge Medication List: Ambulatory Orders NK [No Known Home Medication] 03/07/19 This patient is new to me today: Yes Date on this admission: 03/10/19 Emergency Visit: Yes ED Registration Date: 03/07/19 Care time: The patient presented to the Emergency Department on the above date and was hospitalized for further evaluation of their emergent condition. Critical Care patient: No - Discharge Referral Referred to [facility] No
[2019-03-08 15:36] VITALS: BP 112/62; PULSE 78
--- NOTE | 2019-03-08 18:30 | PN ---
Teaching Attending Note Name of Resident: Dayne Espinoza ATTENDING PHYSICIAN STATEMENT I saw and evaluated the patient. I reviewed the resident's note and discussed the case with the resident. I agree with the resident's findings and plan as documented. SUBJECTIVE: Hemoptysis, sore throat. No fever/chills. OBJECTIVE: Afebrile, Hemodynamically Stable. Last Vital Signs Temp Pulse Resp BP Pulse Ox 98.1 F 78 16 112/62 99 03/08/19 09:00 03/08/19 09:00 03/08/19 09:00 03/08/19 09:00 03/08/19 09:00 HEENT - Atraumatic, Normocephalic. Mild pharyngeal erythema, no exudate. No lymphadenopathy Heart - S1, S2, RRR Lungs - clear to auscultation Abdomen - Soft, non-tender, bowel sounds normal. Extremities - no edema. No calf tenderness. Laboratory Results - last 24 hr 03/07/19 03/07/19 03/07/19 17:55 17:55 17:55 WBC RBC Hgb Hct MCV MCH MCHC RDW Plt Count MPV Absolute Neuts (auto) Neutrophils % Lymphocytes % Monocytes % Eosinophils % Basophils % Nucleated RBC % PT with INR 13.00 INR 1.10 H Sodium Cancelled Potassium Cancelled Chloride Cancelled Carbon Dioxide Cancelled Anion Gap Cancelled BUN Cancelled Creatinine Cancelled Creat Clearance w eGFR Cancelled Random Glucose Cancelled Calcium Cancelled Phosphorus Magnesium Total Bilirubin Cancelled AST Cancelled ALT Cancelled Alkaline Phosphatase Cancelled Total Protein Cancelled Albumin Cancelled Urine Color Yellow Urine Appearance Cloudy Urine pH 5.5 Ur Specific [place] 1.026 Urine Protein Negative Urine Glucose (UA) Negative Urine Ketones Trace H Urine Blood Negative Urine Nitrite Negative Urine Bilirubin Negative Urine Urobilinogen 1.0 Ur Leukocyte Esterase 1+ H Urine WBC (Auto) 30 Urine RBC (Auto) 3.8 Urine Casts (Auto) 34 U Epithel Cells (Auto) 3.4 Urine Bacteria (Auto) 652.1 Urine HCG, Qual Negative Influenza A (Rapid) Influenza B (Rapid) Group A Strep Rapid 03/07/19 03/08/19 03/08/19 19:20 05:15 05:15 WBC 6.3 RBC 4.69 Hgb 13.5 Hct 39.4 MCV 84.1 MCH 28.8 MCHC 34.2 RDW 13.7 Plt Count 224 MPV 7.2 L Absolute Neuts (auto) 2.6 Neutrophils % 42.1 L D Lymphocytes % 47.9 H D Monocytes % 8.0 Eosinophils % 1.5 Basophils % 0.5 Nucleated RBC % 0 PT with INR INR Sodium 139 136 Potassium 4.9 3.9 Chloride 106 104 Carbon Dioxide 26 27 Anion Gap 7 L 5 L BUN 20 H 19 H Creatinine 0.8 0.7 Creat Clearance w eGFR 87.40 101.96 Random Glucose 89 94 Calcium 8.9 9.0 Phosphorus 4.6 Magnesium 2.1 Total Bilirubin 1.0 AST 37 ALT 27 Alkaline Phosphatase 84 Total Protein 8.4 H Albumin 4.1 Urine Color Urine Appearance Urine pH Ur Specific [place] Urine Protein Urine Glucose (UA) Urine Ketones Urine Blood Urine Nitrite Urine Bilirubin Urine Urobilinogen Ur Leukocyte Esterase Urine WBC (Auto) Urine RBC (Auto) Urine Casts (Auto) U Epithel Cells (Auto) Urine Bacteria (Auto) Urine HCG, Qual Influenza A (Rapid) Influenza B (Rapid) Group A Strep Rapid 03/08/19 03/08/19 11:00 11:00 WBC RBC Hgb Hct MCV MCH MCHC RDW Plt Count MPV Absolute Neuts (auto) Neutrophils % Lymphocytes % Monocytes % Eosinophils % Basophils % Nucleated RBC % PT with INR INR Sodium Potassium Chloride Carbon Dioxide Anion Gap BUN Creatinine Creat Clearance w eGFR Random Glucose Calcium Phosphorus Magnesium Total Bilirubin AST ALT Alkaline Phosphatase Total Protein Albumin Urine Color Urine Appearance Urine pH Ur Specific [place] Urine Protein Urine Glucose (UA) Urine Ketones Urine Blood Urine Nitrite Urine Bilirubin Urine Urobilinogen Ur Leukocyte Esterase Urine WBC (Auto) Urine RBC (Auto) Urine Casts (Auto) U Epithel Cells (Auto) Urine Bacteria (Auto) Urine HCG, Qual Influenza A (Rapid) Negative Influenza B (Rapid) Negative Group A Strep Rapid Negative Home Medications Medication Instructions Recorded NK [No Known Home Medication] 03/07/19 ASSESSMENT/PLAN: 24 year old female with no significant PMH presents with 3 day history of hemoptysis. No fever/chills/sputum. History of nosebleeds in childhood, no recent epistaxis. 1. Hemoptysis, likely sec to Viral Pharyngitis with some mucosal friability CT Chest negative Flu negative Quantiferon pending, low probability of TB, no need for isolation. NPO pending Pulmonary eval for possible Bronchoscopy for hemoptysis. Awaiting ID and Pulm eval. 2:45pm - later Informed that patient left AMA.
== END 2019-03-08 13:45 | disposition left against medical advice (07) ==
LOC: JER 16:58 → JERBED 22:17
PROVIDERS: ADMIT Internal Medicine
DX: R04.2 Hemoptysis (principal); F17.200 Nicotine dependence, unspecified, uncomplicated; E66.9 Obesity, unspecified; Z68.30 Body mass index [BMI] 30.0-30.9, adult
CPT/HCPCS: 36415; 71250-TC; 80048; 80053; 81003; 83735; 84100; 84703; 85025; 85610; 86480; 87040; 87070; 87086; 87804; 87880; 93005; 93010; 96365; 99284-25; G0378

== ENCOUNTER 2020-01-05 03:39 | Emergency (ER) | payer OTHER ==
[2020-01-05 03:50] VITALS: BP 117/81; PULSE 85; TEMP 98.1; BMI 30.2
--- NOTE | 2020-01-05 03:58 | PDOC ---
History of Present Illness - General Chief Complaint: Pain, Acute Stated Complaint: CHEST/ABD PAIN Time Seen by Provider: 01/05/20 03:52 History Source: Patient Exam Limitations: No Limitations - History of Present Illness Initial Comments: 01/05/20 03:55 This is a 24-year-old female who comes in complaining of some tightness in her chest. Patient denies any cough, congestion, nausea vomiting or diarrhea. Please eval for leukoplakia of the thumb discomfort in her lower abdominal area. Patient denies history of similar symptoms in the past. Patient did not take anything for them. Allergies: as per nursing notes Past Medical History: none Social history: Lives with family. No smoking. No alcohol. No illicit drugs. Surgical history: None General: No fevers or chills, no weakness, no weight loss HEENT: No change in vision. No sore throat,. No ear pain CardioVascular: + chest discomfort. No shortness of breath Respiratory:No cough, or wheezing. Gastrointestinal: no nausea, vomiting, diarrhea or constipation, No rectal bleeding Genitourinary: No dysuria, hematuria, or frequency Musculoskeletal: No joint or muscle pain or swelling Neurologic: No headache, vertigo, dizziness or loss of consciousness Psychiatric: nor depression Skin: No rashes or easy bruising Endocrine: no increased thirst or abnormal weight change Allergic: no skin or latex allergy All other systems reviewed and normal Exam: General: Well-nourished well-developed individual, no acute distress HEENT: Throat: Normal, tonsils normal, no erythema or exudate Neck: Supple, no meningeal signs, no lymphadenopathy Eyes::Pupils equal reactive and round, extraocular motion intact Chest: Nontender to palpation Cardiac: S1-S2 normal, regular rate and rhythm, no murmurs rubs or gallops Respiratory: Lungs clear to auscultation bilateral Abdomen: Soft, nondistended, normal bowel sounds, there is no tenderness on palpation diffusely Extremities: Warm, dry, no cyanosis, clubbing, or edema Skin: No rashes Neuro: Alert and oriented x3, CN II - XII intact, nonfocal exam with normal strength, normal sensation, normal reflexes, normal gait, Psych: Normal mood and affect Patient given some Tylenol and discharged home. Told to follow-up with her primary care doctor. Past History - Past Medical History Allergies/Adverse Reactions: Allergies Allergy/AdvReac Type Severity Reaction Status Date / Time No Known Allergies Allergy Verified 05/09/18 14:05 Home Medications: Ambulatory Orders NK [No Known Home Medication] 03/07/19 COPD: No - Immunization History Immunization Up to Date: Yes - Psycho Social/Smoking Cessation Hx Smoking History: Never smoked Have you smoked in the past 12 months: Yes Hx Alcohol Use: No Drug/Substance Use Hx: No Substance Use Type: None *Physical Exam - Vital Signs Last Vital Signs Temp Pulse Resp BP Pulse Ox 98.1 F 85 16 117/81 100 01/05/20 03:42 01/05/20 03:42 01/05/20 03:42 01/05/20 03:42 01/05/20 03:42 Discharge - Discharge Information Problems reviewed: Yes Clinical Impression/Diagnosis: Chest discomfort Condition: Stable Disposition: HOME - Admission No - Follow up/Referral - Patient Discharge Instructions Additional Instructions: Return to the emergency department immediately with ANY new, persistent or worsening symptoms. Continue any medications as previously prescribed by your physician. You should follow up with your primary doctor as soon as possible regarding today's emergency department visit. . Please make sure your doctor reviews the results of your emergency evaluation. Thank you for coming to the Emergency Department today for your care. It was a pleasure to see you today. Please note that your evaluation is INCOMPLETE until you follow-up with your doctor. - Post Discharge Activity
[2020-01-05] MEDS ORDERED: ACETAMINOPHEN 500 MG TABLET (FP) PO ONE (03:59)
[2020-01-05] MEDS ORDERED: ACETAMINOPHEN 500 MG TABLET (FP) ONE (04:00)
== END 2020-01-05 04:03 | disposition home or self-care (01) ==
LOC: FER 03:39
DX: R07.89 Other chest pain (principal); Z72.0 Tobacco use
CPT/HCPCS: 99282-25

== ENCOUNTER 2020-11-25 14:34 | Emergency (ER) | payer OTHER ==
[2020-11-25 15:06] VITALS: BP 121/87; PULSE 73; TEMP 98.1; BMI 28.3
[2020-11-25] MEDS ORDERED: DOXYCYCLINE HYCLATE 100 MG CAPSULE PO ONE ×2 (15:56→15:57)
[2020-11-27 14:08] LABS: E.chaff HME IgG Negative (Neg:<1:64)
== END 2020-11-25 17:39 | disposition home or self-care (01) ==
LOC: FER 14:34
DX: R51.9 Headache, unspecified (principal)
CPT/HCPCS: 36415; 70450-TC; 86618; 86666; 93005; 99285-25; C9803; U0003

== ENCOUNTER 2021-07-29 08:00 | Emergency (ER) | payer OTHER ==
[2021-07-29 08:07] VITALS: BP 115/78; PULSE 95; TEMP 100.4; BMI 28.0
[2021-07-29] MEDS ORDERED: ACETAMINOPHEN 500 MG TABLET (FP) PO ONE (08:10)
[2021-07-29] MEDS ORDERED: ACETAMINOPHEN 325 MG TABLET (FP) ONE (08:26)
== END 2021-07-29 09:01 | disposition home or self-care (01) ==
LOC: FER 08:00
DX: U07.1 COVID-19 (principal)
CPT/HCPCS: 71046-TC-FY; 87804; 87807; 99284-25; C9803; U0003; U0005

== ENCOUNTER → 2021-09-23 | Day surgery (SDC) | payer OTHER ==
[2021-09-25 16:12] LABS: THYROID STIM IMMUNOGLOBULIN <0.10 IU/L (0.00-0.55)
== END | disposition home or self-care (01) ==
LOC: JRADIR 10:54
PROVIDERS: ATTEND Internal Medicine Endocrinology, Diabetes & Metabolism
PROC: 0G9G3ZX Drainage of Left Thyroid Gland Lobe, Percutaneous Approach, Diagnostic (ICD-10-PCS; principal; 2021-09-23)
DX: E04.1 Nontoxic single thyroid nodule (principal)
CPT/HCPCS: 10005; 36415; 76942; 84439; 84443; 84445; 86376; 88173; 88305-TC

== ENCOUNTER 2022-10-26 22:30 | Emergency (ER) | payer OTHER ==
[2022-10-26 22:54] VITALS: BP 120/80; PULSE 84; RESP 15; TEMP 98.3; BMI 29.2
[2022-10-26 23:08] LABS: EPITHELIAL CELLS FEW /hpf
[2022-10-26] MEDS ORDERED: PHENAZOPYRIDINE HCL 100 MG TABLET (FP) PO ONE (23:10)
[2022-10-26] MEDS ORDERED: NITROFURANTOIN MACROCRYSTAL 50 MG CAPSULE (FP) ONE (23:13)
[2022-10-26] MEDS ORDERED: PHENAZOPYRIDINE HCL 100 MG TABLET (FP) ONE (23:14)
[2022-10-26] MEDS ORDERED: NITROFURANTOIN MACROCRYSTAL 50 MG CAPSULE (FP) PO SCH (23:15)
== END 2022-10-26 23:23 | disposition home or self-care (01) ==
LOC: FER 22:30
DX: N30.01 Acute cystitis with hematuria (principal)
CPT/HCPCS: 81003; 81015; 84703; 87086; 87186; 99283-25

== ENCOUNTER 2022-12-18 19:54 | Emergency (ER) | payer OTHER ==
[2022-12-18 20:07] VITALS: BP 106/74; PULSE 78; RESP 16; TEMP 98.7; BMI 30.2
== END 2022-12-18 20:19 | disposition home or self-care (01) ==
LOC: FER 19:54
DX: J40 Bronchitis, not specified as acute or chronic (principal)
CPT/HCPCS: 99283-25

== ENCOUNTER 2023-04-01 17:30 | Emergency (ER) | payer OTHER ==
[2023-04-01 17:54] VITALS: BP 110/68; PULSE 89; RESP 20; TEMP 97.8; BMI 29.2
[2023-04-01] MEDS ORDERED: ALBUTEROL SO4 2.5/IPRATROPIUM 0.5 INH SOL 3 ML VIAL.NEB. NEB ONE ×2 (18:15→18:22)
[2023-04-01] MEDS ORDERED: predniSONE 20 MG TABLET (UD) PO ONE (19:55)
[2023-04-01] MEDS ORDERED: AZITHROMYCIN 500 MG TABLET PO ONE (19:55)
[2023-04-01] MEDS ORDERED: predniSONE 20 MG TABLET (UD) ONE (19:58)
[2023-04-01] MEDS ORDERED: AZITHROMYCIN 500 MG TABLET ONE (19:58)
== END 2023-04-01 20:05 | disposition home or self-care (01) ==
LOC: FER 17:30
PROC: 3E0F7GC Introduction of Other Therapeutic Substance into Respiratory Tract, Via Natural or Artificial Opening (ICD-10-PCS; principal; 2023-04-01)
DX: J40 Bronchitis, not specified as acute or chronic (principal)
CPT/HCPCS: 71046-TC-FY; 99283-25

== ENCOUNTER 2024-04-08 00:14 | Emergency (ER) | payer OTHER ==
[2024-04-08 00:21] VITALS: BP 114/76; PULSE 78; RESP 18; TEMP 98; BMI 30.1
[2024-04-08 01:11] LABS: URINE APPEARANCE CLEAR; URINE BILIRUBIN NEGATIVE (NEGATIVE); URINE COLOR YELLOW; URINE GLUCOSE (UA) NEGATIVE (NEGATIVE); URINE KETONE NEGATIVE (NEGATIVE); URINE LEUK ESTERASE NEGATIVE (NEGATIVE); URINE NITRITE NEGATIVE (NEGATIVE); URINE PROTEIN NEGATIVE (NEGATIVE); URINE UROBILINOGEN 0.2 mg/dL (0.2-1.0)
[2024-04-08] MEDS ORDERED: ACETAMINOPHEN 325 MG TABLET (FP) ONE (01:12)
[2024-04-08] MEDS: ACETAMINOPHEN 325 MG TABLET (FP) PO ONE (01:13)
[2024-04-08 01:17] LABS: HCG,QUALITATIVE URINE Positive
== END 2024-04-08 03:22 | disposition home or self-care (01) ==
LOC: JER 00:14
DX: O26.892 Other specified pregnancy related conditions, second trimester (principal); R10.30 Lower abdominal pain, unspecified; Z3A.19 19 weeks gestation of pregnancy
CPT/HCPCS: 36415; 76801-TC; 81003; 84702; 84703; 87086; 99284-25

== ENCOUNTER 2024-09-06 07:20 | Inpatient (IN) | payer OTHER ==
[2024-09-06 08:11] VITALS: BMI 34.3
[2024-09-06] MEDS: ELECTROLYTE-148 SOLN 1,000 ML IV SCH (08:40)
[2024-09-06] MEDS ORDERED: OXYTOCIN 30 UNITS in 0.9% NS 30 UNIT/500 ML INFUS.BAG IVPB ONE (09:15)
[2024-09-06] MEDS: OXYTOCIN 30 UNITS in 0.9% NS 30 UNIT/500 ML INFUS.BAG IVPB SCH (09:20)
[2024-09-06] MEDS ORDERED: AMPICILLIN SODIUM 2 GM VIAL ONE (09:28)
[2024-09-06] MEDS ORDERED: SODIUM CHLORIDE 100 ML IVPB ONE ×3 (09:28→17:38)
[2024-09-06] MEDS: AMPICILLIN - 2 GM in SODIUM CHLORIDE 100 ML IVPB ONE (09:32)
[2024-09-06 10:18] LABS: HEMATOCRIT 37.2 % (32.4-45.2); HEMOGLOBIN 12.2 GM/dL (10.7-15.3); MCH 28.1 pg (25.7-33.7); MCHC 32.8 g/dl (32.0-36.0); MEAN CELL VOLUME 85.8 fl (80-96); MEAN PLT VOLUME 7.7 fl (7.5-11.1); PLATELET COUNT 259 10^3/uL (134-434); RBC 4.34 M/mm3 (3.60-5.2); RDW 14.3 % (11.6-15.6); WHITE BLOOD COUNT 9.2 K/mm3 (4.0-10.0)
[2024-09-06 10:19] LABS: INR 1.05 (0.83-1.09); PROTHROMBIN TIME (PATIENT) 11.8 SEC (9.7-13.0)
[2024-09-06 10:35] LABS: CALCIUM 8.9 mg/dL (8.5-10.1)
[2024-09-06 10:36] LABS: BLOOD UREA NITROGEN 8.3 mg/dL (7-18)
[2024-09-06 10:39] LABS: CREATININE 0.6 mg/dL (0.55-1.3)
[2024-09-06] MEDS ORDERED: FENTANYL/BUPIVACAINE/NS/PF - PCEA - 50 ML DISP.SYRIN EP ONE ×3 (11:53→18:29)
[2024-09-06] MEDS ORDERED: BUPIVACAINE HCL/PF 0.25% (2.5MG/ML) 10 ML VIAL ONE (12:14)
[2024-09-06] MEDS: FENTANYL/BUPIVACAINE/NS/PF - PCEA - 50 ML DISP.SYRIN EP SCH (12:20)
[2024-09-06] MEDS ORDERED: NALOXONE HCL 0.4 MG/ML VIAL IVPUSH PRN (12:38)
[2024-09-06 13:24] LABS: SYPHILIS W/ RPR CONF REACTIVE (NONREACTIVE)
[2024-09-06 13:36] LABS: HIV INTERPRETATION NEGATIVE (NEGATIVE)
[2024-09-06] MEDS ORDERED: AMPICILLIN SODIUM 1 GM VIAL ONE ×3 (13:40→20:54)
[2024-09-06] MEDS: AMPICILLIN - 1 GM in SODIUM CHLORIDE 100 ML IVPB SCH (13:50)
[2024-09-06] MEDS: PROMETHAZINE HCL 25 MG/1 ML VIAL IVPB ONE (14:23)
[2024-09-06] MEDS: BUTORPHANOL TARTRATE 1 MG/ML VIAL IVPB ONE (14:24)
[2024-09-06] MEDS ORDERED: OXYTOCIN 20 UNITS in 0.9% NS 20 UNIT/1,000 ML INFUS.BAG IV ONE (20:41)
[2024-09-07] MEDS: CITRIC ACID/SODIUM CITRATE 30 ML UNIT-DOSE CUP PO ONE (01:12)
[2024-09-07] MEDS ORDERED: OXYTOCIN 20 UNITS in 0.9% NS 20 UNIT/1,000 ML INFUS.BAG IV ONE (01:24)
[2024-09-07] MEDS ORDERED: morphine SULFATE/PF 1 MG/2 ML (2cc Syringe - QUVA) ONE (01:50)
[2024-09-07] MEDS: OXYTOCIN 20 UNITS in 0.9% NS 20 UNIT/1,000 ML INFUS.BAG IV SCH (03:15)
[2024-09-07] MEDS ORDERED: ONDANSETRON 4 MG/2 ML VIAL IVPUSH PRN (03:18)
[2024-09-07] MEDS ORDERED: METHYLERGONOVINE MALEATE 0.2 MG/1 ML AMP IM PRN (03:24)
[2024-09-07] MEDS ORDERED: ACETAMINOPHEN INJECTION 100 ML ONE (04:06)
[2024-09-07] MEDS: ACETAMINOPHEN 1000 MG/100 ML BAG IVPB PRN (04:12)
[2024-09-07] MEDS: IBUPROFEN 800 MG/8 ML IJ IVPB PRN (05:38)
[2024-09-07] MEDS: FERROUS SO4 325 MG TABLET (FP) PO SCH (10:00)
[2024-09-07] MEDS: SENNOSIDES/DOCUSATE COMBO (SENNA PLUS) TABLET (UD) PO PRN (20:01)
[2024-09-07] MEDS: SIMETHICONE 80 MG TAB.CHEW (FP) PO PRN (20:01)
[2024-09-07] MEDS: IBUPROFEN 600 MG TABLET (FP) PO PRN (22:43)
[2024-09-08] MEDS: oxyCODONE HCL 5 MG TABLET PO PRN ×2 (00:55→07:04)
[2024-09-08] MEDS ORDERED: BISACODYL 10 MG SUPP.RECT RC PRN (03:24)
[2024-09-08] MEDS: ACETAMINOPHEN 325 MG TABLET (FP) PO PRN (03:41)
[2024-09-08 08:57] LABS: BASO % 0.2 % (0-2.0); EOS % 0.5 % (0-4.5); HEMATOCRIT 32.2 % (32.4-45.2); HEMOGLOBIN 10.5 GM/dL (10.7-15.3); LYMPH % 22.8 % (8-40); MCH 28.4 pg (25.7-33.7); MCHC 32.5 g/dl (32.0-36.0); MEAN CELL VOLUME 87.3 fl (80-96); MEAN PLT VOLUME 7.9 fl (7.5-11.1); MONO % 6.7 % (3.8-10.2); NEUT % 69.8 % (42.8-82.8); PLATELET COUNT 254 10^3/uL (134-434); RBC 3.69 M/mm3 (3.60-5.2); RDW 14.5 % (11.6-15.6); WHITE BLOOD COUNT 13.8 K/mm3 (4.0-10.0)
[2024-09-08] MEDS: PRENATAL VITAMINS W/ FOLIC ACID TABLET (FP) PO SCH (09:27)
[2024-09-08 22:43] VITALS: RESP 18
[2024-09-10 10:05] VITALS: BP 132/78; PULSE 83; TEMP 98.3
== END 2024-09-10 13:55 | disposition home or self-care (01) | DRG 560 ==
LOC: JLDR 07:20 → J3W 09-07 05:50
PROVIDERS: ADMIT Obstetrics & Gynecology; ATTEND Obstetrics & Gynecology
DX: O48.0 Post-term pregnancy (principal); Z3A.40 40 weeks gestation of pregnancy; O32.4XX0 Maternal care for high head at term, not applicable or unspecified; O24.420 Gestational diabetes mellitus in childbirth, diet controlled; Z37.0 Single live birth
CPT/HCPCS: 36415; 80048; 85025; 85027; 85610; 86593; 86780; 86803; 86850; 86900; 86901; 87389; 88307-TC; J0131